=== PATIENT | male | born 1945 ===

== ENCOUNTER 2016-10-29 09:30 | Outpatient (RCR) | payer OTHER | END 2016-11-15 | disposition home or self-care (01) | LOC: PTY 09:30 | DX: M54.17 Radiculopathy, lumbosacral region (principal) | CPT/HCPCS: 97110; 97140; 97162; G0283 ==

== ENCOUNTER 2016-11-21 12:50 | Outpatient (RCR) | payer OTHER | END 2016-12-16 | disposition home or self-care (01) | LOC: PTY 12:50 | DX: M54.17 Radiculopathy, lumbosacral region (principal) | CPT/HCPCS: 97110; 97140; G0283 ==

== ENCOUNTER 2017-01-01 09:15 | Outpatient (RCR) | payer OTHER | END 2017-01-16 | disposition home or self-care (01) | LOC: PTY 09:15 | DX: M54.17 Radiculopathy, lumbosacral region (principal) | CPT/HCPCS: 97110; 97140; G0283 ==

== ENCOUNTER 2017-01-17 09:08 | Outpatient (RCR) | payer OTHER | END 2017-02-15 | disposition home or self-care (01) | LOC: PTY 09:08 | DX: M54.17 Radiculopathy, lumbosacral region (principal) ==